=== PATIENT | female | born 1940 | race Hispanic/Latino ===

== ENCOUNTER 2021-01-29 15:47 | Emergency (ER) | payer MEDICARE ==
[~2021-01-29] VITALS: Ht 154.9 cm; Wt 59.0 kg
[2021-01-29] MEDS ORDERED: CEFDINIR300 MG PO (17:08)
== END 2021-01-29 17:47 | disposition home or self-care (01) ==
LOC: FSED 16:12
DX: N30.00 Acute cystitis without hematuria (principal); R30.0 Dysuria; R10.30 Lower abdominal pain, unspecified; I10 Essential (primary) hypertension; E78.5 Hyperlipidemia, unspecified; F17.210 Nicotine dependence, cigarettes, uncomplicated
CPT/HCPCS: 74176; 80053; 81003; 85025; 99283